=== PATIENT | male | born 1965 | race Caucasian/White ===

== ENCOUNTER 2025-02-19 08:50 | Emergency (ER) | payer OTHER ==
[~2025-02-19] VITALS: Ht 182.9 cm; Wt 1025.0 kg
[2025-02-19 08:54] VITALS: TEMP 98.9
[2025-02-19] MEDS: FLUORESCEIN SODIUM 1 MG STRIP OU ONE (09:26)
[2025-02-19] MEDS: PERTUSS(ACELL),DIPH,TET/PF 0.5 ML SYRINGE [ADULT] IM. ONE (10:02)
[2025-02-19] MEDS ORDERED: IBUP-1492 PO (10:13)
[2025-02-19 10:38] VITALS: BP 132/78; PULSE 82; RESP 18; O2SAT 99
== END 2025-02-19 10:41 | disposition home or self-care (01) ==
LOC: EMS 08:54
DX: S00.12XA Contusion of left eyelid and periocular area, initial encounter (principal); H20.9 Unspecified iridocyclitis; Z98.890 Other specified postprocedural states; Y08.89XA Assault by other specified means, initial encounter; Y93.89 Activity, other specified; Y92.89 Other specified places as the place of occurrence of the external cause; Y99.9 Unspecified external cause status
CPT/HCPCS: 90471; 90715; 99283